=== PATIENT | female | born 1995 | race Two or more races ===

== ENCOUNTER 2022-08-08 12:19 | Emergency (ER) | payer OTHER, SELFPAY ==
--- NOTE | ~2022-08-08 | US_ITS ---
EARLY OBSTETRICAL ULTRASOUND CLINICAL INDICATION: Pain TECHNIQUE: Transabdominal and endovaginal ultrasound were performed. Multiple sagittal and transverse grayscale, color and pulse wave doppler images obtained. COMPARISONS: None. FINDINGS: LMP unknown. Single intrauterine is identified within the uterus. A pole is identified with crown rump length measuring 2.35 cm, corresponding with 9 weeks, 1 days by sonography. heart rate measures 176 beats per minute. Yolk sac is normal. No perigestational hemorrhage. The right ovary measures 2.3 x 1.4 x 2.0 cm. The left ovary measures 3.2 x 2.2 x 3.0 cm. Left ovarian corpus luteal cyst noted measuring 2.2 x 2.0 x 1.9 cm. No free fluid in the pelvis. US/US OB <= 14 weeks fetus IMPRESSION: Single intrauterine gestation corresponding with 9 weeks, 1 days by sonography. heart rate of 176 beats per minute.
--- NOTE | 2022-08-08 12:32 | ED_ITS ---
HPI - General Adult General Chief complaint: Vaginal Bleeding Stated complaint: Cramping 9 -10 Wks Preg Time Seen by Provider: 08/08/22 14:59 Source: patient Mode of arrival: ambulatory Limitations: no limitations History of Present Illness HPI narrative: 27-year-old female presents to the emergency department for concerns of abdominal pain and cramping. She thinks she is approximately 9 weeks . She states she has also has some brownish vaginal discharge. She denies fevers chills cough nausea vomiting or diarrhea. Related Data Allergies Allergy/AdvReac Type Severity Reaction Status Date / Time No Known Allergies Allergy Verified 08/08/22 12:31 Review of Systems Review of Systems: Review of systems: General: Patient denies any fever chills recent illness or falls Musculoskeletal: Denies back pain or body aches or other injuries HEENT: denies headache, runny nose, ear pain Respiratory: denies shortness of breath, cough Cardiovascular: no chest pain or palpitations : Vaginal discharge denies dysuria, frequency Abdomen: no nausea vomiting denies abdominal pain Extremities: no swelling, no pain Skin: no diaphoresis Yes all other systems are reviewed and are negative PMFSH Social History Social History Advance Directives: No Advance Directives Information Provided: No Physical Exam ED Vital Signs: Vital Signs - 24 hr 08/08/22 12:33 Temperature 98.0 F Pulse Rate 89 Respiratory Rate 16 Blood Pressure 106/71 Pulse Oximetry 97 Oxygen Delivery Method Room Air BMI result Body Mass Index 41.4 General: Well-appearing well-nourished in no signs of distress HEENT: Normocephalic atraumatic Neck: No signs of JVD, no masses no tenderness or lymphadenopathy Cardiovascular: Regular rate and rhythm Respiratory: Clear to auscultation bilaterally Abdomen: Soft nontender no masses Extremities: Normal pedal pulses no signs of edema Skin: Dry warm no rashes Back: No tenderness full ROM Course Course Course Narrative: RME- 27-year-old female with past medical history significant for migraine headaches presents for evaluation of lower abdominal cramping and vaginal spotting. Reports that she recently found out she is and believes she is about 3 months. Does not remember her last menstrual cycle. She is . Plan for labs, ultrasound Medical Decision Making Medical Decision Making MDM Narrative: Patient is approximately 11 weeks I did explain to the patient by ultrasound patient states she has been 4 times she denies fevers chills cough or abdominal pain at this time. I explained to her that we need to do pelvic exam as she states she has brownish discharge she requested a female provider and then absconded from the ER. I was able to arrange fever Friday when he went to the room she was no longer there. Differential Diagnosis Differential Diagnoses: The differential diagnosis associated with the presentation includes He has Trichomonas GC chlamydia normal vaginal ludin Admission/Observation Consideration of admission/observation: Escalation of care including admission/observation considered Lab Data MDM Lab Attestation statement: I reviewed the patient's lab results. 08/08/22 12:52 08/08/22 12:52 Labs: Lab Results 08/08/22 08/08/22 Range/Units 12:52 12:52 WBC 8.2 (4.8-10.8) X10*3/uL RBC 3.86 L (4.20-5.50) X10*6/uL Hgb 11.1 L (12.0-16.0) g/dl Hct 33.0 L (37.0-47.0) % MCV 85.5 (80.0-98.0) fL MCH 28.8 (27.0-33.0) pg MCHC 33.6 (31.0-35.0) g/dl RDW 11.8 (11.0-16.0) % Plt Count 232 (160-400) X10*3/uL MPV 10.1 (9.4-12.3) fL Immature Gran % (Auto) 0.4 (0.0-0.4) % Neut % (Auto) 72.5 (45-73) % Lymph % (Auto) 19.1 L (20-40) % Teller % (Auto) 5.1 (2-11) % Eos % (Auto) 2.7 (0-4) % Baso % (Auto) 0.2 (0-2) % Lymph # (Auto) 1.6 (1.2-4.9) X10*3/uL Teller # (Auto) 0.4 (0.1-1.2) X10*3/uL Eos # (Auto) 0.2 (0.0-0.4) X10*3/uL Baso # (Auto) 0.0 (0.0-0.2) X10*3/uL Abs Immat Gran (auto) 0.03 (0.00-0.03) X10*3/uL Absolute Neuts (auto) 5.9 (2.0-8.3) x10*3/uL Absolute Nucleated RBC 0.000 (0.0-0.012) X10*3/uL Nucleated RBC % (auto) 0.0 (0.0-0.2) /100WBC Sodium 138 (135-145) mmol/L Potassium 4.0 (3.3-5.1) mmol/L Chloride 110 H (96-108) mmol/L Carbon Dioxide 22 (22-29) mmol/L Anion Gap 10 L (12-20) BUN 9 (9-16) mg/dL Creatinine 0.61 (0.5-1.4) mg/dL Estim Creat Clear Calc 84.0 Estimated GFR > 60 Random Glucose 87 (60-115) mg/dL Calcium 9.0 (8.4-10.2) mg/dL Total Bilirubin 0.3 (0.0-1.0) mg/dL AST 11 (5-31) U/L ALT 9 (0-31) U/L Alkaline Phosphatase 57 (39-117) U/L Total Protein 6.4 L (6.5-8.0) g/dL Albumin 3.8 (3.5-5.0) g/dL Lipase 18 (8-78) U/L Beta HCG, Quant 51245 mIU/mL Independent Historian Clinical information obtained from an independent historian. History obtained from or confirmed by: Friend External Record Review External record reviewed: Inpatient record Discharge Plan Discharge Clinical Impression: Threatened , Vaginal discharge, Vaginal discharge during in first trimester Patient Disposition: Elopement Instructions: Vaginal Discharge (ED), First Trimester (ED), Abdominal Pain in (ED), Threatened Miscarriage (ED) Additional Instructions: You left before we could come up with any gave plan. please return.
[2022-08-08 12:33] VITALS: BP 106/71; PULSE 89; RESP 16; TEMP 36.7; O2SAT 97; BMI 41.4
[2022-08-08 12:58] LABS: MANUAL DIFF FLAG NO
[2022-08-08 13:01] LABS: Basophils Percent Auto 0.2 % (0-2); Eosinophils Absolute Auto 0.2 X10*3/uL (0.0-0.4); Eosinophils Percent Auto 2.7 % (0-4); Hemoglobin 11.1 g/dl (12.0-16.0); Imm Gran Abs Auto 0.03 X10*3/uL (0.00-0.03); Imm Gran Pct Auto 0.4 % (0.0-0.4); Lymphocytes Absolute Auto 1.6 X10*3/uL (1.2-4.9); Lymphocytes Percent Auto 19.1 % (20-40); Mean Corpuscular HGB Conc 33.6 g/dl (31.0-35.0); Mean Corpuscular Hemoglobin 28.8 pg (27.0-33.0); Mean Corpuscular Volume 85.5 fL (80.0-98.0); Mean Platelet Volume 10.1 fL (9.4-12.3); Monocytes Absolute Auto 0.4 X10*3/uL (0.1-1.2); Monocytes Percent Auto 5.1 % (2-11); Neutrophils Absolute Auto 5.9 x10*3/uL (2.0-8.3); Neutrophils Percent Auto 72.5 % (45-73); Platelet Count 232 X10*3/uL (160-400); Red Blood Count 3.86 X10*6/uL (4.20-5.50); Red Cell Distribution Width 11.8 % (11.0-16.0); White Blood Count 8.2 X10*3/uL (4.8-10.8)
[2022-08-08 13:25] LABS: Alanine Aminotransferase 9 U/L (0-31); Albumin Level 3.8 g/dL (3.5-5.0); Alkaline Phosphatase 57 U/L (39-117); Anion Gap 10 (12-20); Aspartate Amino Transferase 11 U/L (5-31); Bilirubin Total 0.3 mg/dL (0.0-1.0); Blood Urea Nitrogen 9 mg/dL (9-16); Carbon Dioxide 22 mmol/L (22-29); Chloride 110 mmol/L (96-108); Estimated Glomerular Filt Rate > 60; Glucose Random 87 mg/dL (60-115); Lipase 18 U/L (8-78); Sodium 138 mmol/L (135-145); Total Protein 6.4 g/dL (6.5-8.0)
== END 2022-08-08 15:40 | disposition left against medical advice (07) ==
PROVIDERS: Physician Assistant; Emergency Provider Student in an Organized Health Care Education/Training Program
DX: O20.0 Threatened abortion (principal); O26.891 Other specified pregnancy related conditions, first trimester; N89.8 Other specified noninflammatory disorders of vagina; Z3A.09 9 weeks gestation of pregnancy
CPT/HCPCS: 36415; 76801; 80053; 83690; 84702; 85025; 99281; 99284

== ENCOUNTER 2024-10-15 12:24 | Emergency (ER) | payer MEDICAID, SELFPAY ==
--- NOTE | 2024-10-15 12:29 | ECG_ITS ---
Test Reason : cp Blood Pressure : */* mmHG Vent. Rate : 68 BPM Atrial Rate : 68 BPM P-R Int : 142 ms QRS Dur : 88 ms QT Int : 392 ms P-R-T Axes : 29 12 23 degrees QTcB Int : 416 ms Normal sinus rhythm Normal ECG No previous ECGs available Referred By: Candy Teran Electronically Signed By: Roderick Duran
[2024-10-15 12:44] VITALS: BP 127/89; PULSE 67; RESP 18; TEMP 36.6; O2SAT 98
--- NOTE | 2024-10-15 12:53 | ED.GENADULT ---
HPI - General Adult General Chief complaint: General Medical Stated complaint: CP, possible fractured toe, possible uti Time Seen by Provider: 10/15/24 13:55 Source: patient Mode of arrival: ambulatory Limitations: no limitations History of Present Illness ED Provider: HPI narrative: 29-year-old woman, no active SI or HI, patient was already cleared by crisis team at the time of my evaluation, sounds like during triage she mentioned that she does have thoughts of harming herself and have had thoughts of jumping of the bridge and when she was told that she needs to be evaluated by psychiatric team and she is placed on section 12 there was some verbal altercation with the staff this patient did not feel that this is necessary and she is here for medical issues and just mentioned this as part of mental health intake and she is not actively SI. She states that she is to be taking antibiotics for 5th toe infection on her left foot, considers that it may be dislocated, she also states that she is taking the same antibiotics for UTI but still has vaginal itching and wonders whether she has Trichomonas as, and she also has a history of herpes zoster but currently does not have and I break. She was sexually active with a partner on and off without protection. Patient told me that this is the 3rd hospital she is presenting to 1st they went to [facility] then she states that in provide good care of her and she was wheeled out , then she took ambulance to [facility] and something was sent to her by a staff which triggered her and she ended up at [facility] with her friend. She was also complaining of chest pain and then also wanted to be tested for flu and COVID. Related Data Previous Rx's ?Medication ?Instructions ?Recorded metronidazole 0.75 % (37.5 mg/5 1 appful vaginal DAILY 5 days #70 10/15/24 gram) vaginal gel (Vandazole) grams Allergies Allergy/AdvReac Type Severity Reaction Status Date / Time No Known Allergies Allergy Verified 10/15/24 12:49 Review of Systems Constitutional: Constitutional: Reports as per HPI Physical Exam ED Vital Signs: Vital Signs - 24 hr 10/15/24 12:44 Temperature 98 F Pulse Rate 67 Respiratory Rate 18 Blood Pressure 127/89 Pulse Oximetry 98 Oxygen Delivery Method Room Air BMI result Body Mass Index 30.0 Const Other: Gen: ?Overall well-appearing patient MSK: FROM, strength 5/5 all extremities Skin: Patient has a callus on the lateral side of the 5th digit without any erythema without drainage distal pulses intact, Neuro: ?Alert and oriented x3, moving upper and lower extremities symmetrically, no obvious facial asymmetry noted Psych: No SI or HI, see my HPI Course Course Course Narrative: Candy Teran [employer]ER 10/15 8731 This is a rapid medical exam. Deferred additional HPI, ROS, PE to primary provider. 29yo female with history of bipolar disorder here with multiple complaints including SI with plan, CP, concern for UTI and toe infection. Direct to pod. VSS After triage patient decided she wanted to leave. Unable to re-direct her. Section 12 completed . Medical Decision Making Medical Decision Making [facility] Narrative: I explained to the patient that unless I have suspicion for viral infection she is febrile not going to be testing for flu or COVID this can be done on outpatient basis, her toe examination is consistent with callus see my discharge instructions regarding management for that, we will send off urine for GC and chlamydia, we will treat for yeast infection we will send of BV test as well, exam deferred, as far as such I gave evaluation, patient has no active SI or HI, she was evaluated by crisis team and cleared from a section 12 prior to my evaluation, psychiatric issue was not part of her visit this was noted in triage. Differential Diagnosis Differential Diagnoses: The differential diagnosis associated with the presentation includes Lab Data [facility] Lab Attestation statement: I reviewed the patient's lab results. 10/15/24 13:44 10/15/24 13:44 Labs: Lab Results 10/15/24 Range/Units 13:44 WBC 6.0 (4.8-10.8) X10*3/uL RBC 4.49 (4.20-5.50) X10*6/uL Hgb 12.5 (12.0-16.0) g/dl Hct 37.6 (37.0-47.0) % MCV 83.7 (80.0-98.0) fL MCH 27.8 (27.0-33.0) pg MCHC 33.2 (31.0-35.0) g/dl RDW 12.2 (11.0-16.0) % Plt Count 243 (160-400) X10*3/uL MPV 11.3 (9.4-12.3) fL Immature Gran % (Auto) 0.2 (0.0-0.4) % Neut % (Auto) 52.6 (45-73) % Lymph % (Auto) 37.6 (20-40) % Sawyer % (Auto) 6.9 (2-11) % Eos % (Auto) 2.2 (0-4) % Baso % (Auto) 0.5 (0-2) % Lymph # (Auto) 2.2 (1.2-4.9) X10*3/uL Sawyer # (Auto) 0.4 (0.1-1.2) X10*3/uL Eos # (Auto) 0.1 (0.0-0.4) X10*3/uL Baso # (Auto) 0.0 (0.0-0.2) X10*3/uL Abs Immat Gran (auto) 0.01 (0.00-0.03) X10*3/uL Absolute Neuts (auto) 3.1 (2.0-8.3) x10*3/uL Absolute Nucleated RBC 0.000 (0.0-0.012) X10*3/uL Nucleated RBC % (auto) 0.0 (0.0-0.2) /100WBC Ethyl Alcohol < 10 mg/dL Independent Interpretation I performed an independent interpretation of an: EKG (68 beats per minute otherwise normal ECG without dysrhythmia, AV vish blocks or ST-T changes to suspect underlying ACS, my independent interpretation) Prescription Management I considered prescription management with: Pain Medication and Antibiotic Discharge Plan Discharge Clinical Impression: Callus of toe, Vagina itching Chest pain Qualifiers: Chest pain type: unspecified Qualified Code(s): R07.9 - Chest pain, unspecified Patient Disposition: Home, Self-Care Additional Instructions: You have had fairly involved workup for chest pain specifically, your EKG and workup did not reveal any abnormalities/in the chest pain is likely due to musculoskeletal issues typically in the young healthy woman it is due to ribcage inflammation and you can take ibuprofen 400 mg every 6 hours needed for pain for that., your blood work does not reveal any suspicious for ongoing infection, we discussed soaking your toe and cutting off the callus and adjusting your shoe wear, your toes not dislocated, gonorrhea and chlamydia test has been ordered and if you provide a sample it is going to be sent and we will result in the next 48 hours, if it is positive you will get a phone call, in the meantime I will treat for presumptive vaginal yeast infection and it is likely due to the fact that you were on antibiotics, vaginal cream sent to your pharmacy, as far as mental health issues, if you do feel any thoughts of hurting herself or harming others and you need help never hesitate to come back to emergency department for re-evaluation we have resources for that. Prescriptions: New metronidazole [Vandazole] 0.75 % (37.5mg/5 gram) gel 1 appful vaginal DAILY 5 Days Qty: 70 0RF Print Language: [place]
--- NOTE | 2024-10-15 12:58 | PC.NURSE ---
Received report from Moreno Urrutia RN. Per report, patient was triaged, initial complaints of chest pain, toe pain/infection, ?UTI, and then reported feeling suicidal. Patient to come to ED Pod with staff escort. Changeover in progress with staff & security at this time. This RN to assume care of this patient upon arrival to Pod.
[2024-10-15 13:48] LABS: MANUAL DIFF FLAG NO
--- NOTE | 2024-10-15 13:54 | PC.NURSE ---
Per Provider, pt denies SI/HI pt cleared by Care team. PT to provide urine.
[2024-10-15 13:56] LABS: Hematocrit 37.6 % (37.0-47.0); Hemoglobin 12.5 g/dl (12.0-16.0); Imm Gran Abs Auto 0.01 X10*3/uL (0.00-0.03); Imm Gran Pct Auto 0.2 % (0.0-0.4); Lymphocytes Absolute Auto 2.2 X10*3/uL (1.2-4.9); Mean Corpuscular HGB Conc 33.2 g/dl (31.0-35.0); Mean Corpuscular Hemoglobin 27.8 pg (27.0-33.0); Mean Corpuscular Volume 83.7 fL (80.0-98.0); NRBC Abs Auto 0.000 X10*3/uL (0.0-0.012); NRBC Pct Auto 0.0 /100WBC (0.0-0.2); Platelet Count 243 X10*3/uL (160-400); Red Blood Count 4.49 X10*6/uL (4.20-5.50); White Blood Count 6.0 X10*3/uL (4.8-10.8)
[2024-10-15 14:06] LABS: Alanine Aminotransferase 24 U/L (0-31); Albumin Level 4.5 g/dL (3.5-5.0); Alkaline Phosphatase 83 U/L (39-117); Anion Gap 10 (12-20); Aspartate Amino Transferase 28 U/L (5-31); Blood Urea Nitrogen 7 mg/dL (9-16); Calcium 8.9 mg/dL (8.4-10.2); Carbon Dioxide 22 mmol/L (22-29); Chloride 113 mmol/L (96-108); Creatinine Clr Calc Pharmacy 114.4; Estimated Glomerular Filt Rate > 60; Potassium 3.8 mmol/L (3.3-5.1); Sodium 141 mmol/L (135-145); Total Protein 6.9 g/dL (6.5-8.0)
[2024-10-15 14:12] LABS: Acetaminophen LAB 5 mcg/mL (<30); Salicylate < 5.0 mg/dL (15-30)
--- OUTSIDE RECORDS SUMMARY | 2024-10-15 14:14 | XMS_ITS | Clinical Summary ---
Author Organization [facility] Address [address] [place] [address] Care Team Providers Care Service Representative Name Role Phone Unavailable Primary Care Provider Unavailabl e Source Comments PLEASE NOTE, if this patient is a minor, it may be UNLAWFUL to discuss sensitive information that is contained in these records (such as FAMILY PLANNING, MENTAL HEALTH or SUBSTANCE ABUSE) with the minor patient's parent or other person without the patient's specific authorization.[facility] Allergies No known active allergies Medications ibuprofen 600 mg tabletIndications: Chronic apical periodontitis Take 1 Tablet by mouth 4 (four) times daily as needed for mild pain 20 Tablet 3 Active acetaminophen (TYLENOL) 500 mg tabletIndications: Caries of pulp Take 1 Tablet by mouth every 6 (six) hours as needed for pain 20 Tablet 3 Active Active Problems No known active problems Social History Tobacco Use Types Packs/Day Years Used Date Smoking Tobacco: Never Smokeless Tobacco: Never Tobacco Cessation:Counseling Given: Not Answered Comments:Vape TSD Oil Social Connections Answer Date Recorded Connectedness 0 11/19/2023 Financial Resource Strain Answer Date R ecorded Financial Resource Strain 0 2021 Stress Answer Date Recorded Stress 0 06/22/2021 Physical Activity Answer Date Recorded Physical Activity 0 06/22/2021 Food Insecurity Answer Date Recorded Food 0 11/27/2023 Transportation Needs Answer Date Record ed Transportation 0 06/22/2021 Housing Stability Answer Date Recorded Housing 0 06/22/2021 Safety and Environment Answer Date Gustavo rded Safety 0 06/22/2021 Utilities Answer Date Recorded Utilities 0 06/22/2021 Employment Answer Date Recorded Stress 0 11/19/2023 Comments Unknown Sex and Gender Information Value Date Recorded Sex Assigned at Not on file Legal Sex Female 7:56 AM PDT Gender Identity Not on file Sexual Orientation Not on file Last Filed Vital Signs Vital Sign Reading Time Taken Comments Blood Pressure 111/75 05/31/2024 1:22 PM EDT Pulse 72 05/31/2024 1:22 PM EDT Temperature - - Respiratory Rate - - Oxygen Saturation - - Inhaled Oxygen Concentration - - Weight - - Height - - Body Mass Index - - Plan of Treatment Health Maintenance Due Date Last Done Comments Anxiety Screening 1997 Dental Prophy 1997 HPV Screening 1997 Hepatitis C Screening 1997 Pap + HPV 1997 HIV Screening 2012 Relationship Safety Screening/Counseling 2012 Imm-Hepatitis B (1 of 3 - 19 + 3-dose series) 2016 Cervical Cancer Screening 2018 Pap Smear 2018 Dental Examination 01/04/2023 01/02/2022 Dental Perio Charting 01/04/2023 01/02/2022 [id number] ( season) 2023 022, 02/26/2021 Dental BW 02/15/2024 02/12/2023, 01/02/2022 Alcohol and Drug Screen 03/03/2024 Depression Annual Screen 03/03/2024 Imm-Influenza (#1) 2024 12/26/2022, 0 05/15/2018, 01/31/2017, Additional history exists Tobacco Screening 05/31/2025 05/31/2024 Hypertension Screening (#1) 05/31/2027 Dental FMX/Pano 07/06/2027 07/03/2022, 01/02/2022 Imm-DTaP/Tdap/Td (9 - Td or Tdap) 12/26/2032 12/26/2022, 09/18/2018, 02/28/2017, Additional history exists Cervical Ablation/Cold-Knife Conization Discontinued Cervical Cryotherapy Discontinued Colposcopy Discontinued Endometrial Biopsy Discontinued Excision/Leep Discontinued HPV Genotyping Discontinued Vaginal Pap Discontinued Vulvoscopy Discontinued Procedures Procedure Name Priority Date/Time Associated Diagnosis Comments BITEWINGS - FOUR RADIOGRAPHIC IMAGES Routine 02/12/2023 11:00 AM EST Caries of enamel (incipient) PANORAMIC RADIOGRAPHIC IMAGE Routine 07/03/2022 10:40 AM EDT Chronic apical periodontitis COMP PERIODONTAL EVALUATION - NEW/EST PATIENT Routine 01/02/2022 11:00 AM EDT Gingivitis, chronic, plaque induced PERIODIC ORAL EVALUATION ESTABLISHED PATIENT Routine 01/02/2022 11:00 AM EDT Gingivitis, chronic, plaque induced from Last 3 Months or Most Recently Relevant to Health Maintenance Insurance [place] MEDICAID DENTAL
[2024-10-15 14:22] LABS: Troponin-I High Sensitivity < 2.7 ng/L (<3.5-17.0)
[2024-10-15 14:25] LABS: UPreg QC Valid YES
[2024-10-15 14:26] LABS: Appearance Urine Clear; Glucose Urine UA Negative (Negative); PH 6.5 (5.0-9.0); Specific Gravity - Urine 1.025 (1.005-1.025); UMIC TRIGGER UACC YES
[2024-10-15 14:33] LABS: UACC Culture Trigger YES
[2024-10-15 14:36] LABS: Cannabinoid Screen Urine POSITIVE (Not Detect)
[2024-10-15 15:58] LABS: Bacterial Vaginosis PCR POSITIVE (Negative); Candida Group PCR DETECTED (Not Detect); Candida glab krusei PCR NOT DETECTED (Not Detect); Trichomonas vaginalis PCR NOT DETECTED (Not Detect)
[2024-10-15 18:01] LABS: CT PCR Urine NOT DETECTED (Not Detect.); NG PCR Urine NOT DETECTED (Not Detect.)
[2024-10-15 19:37] VITALS: BP 127/89; PULSE 67; RESP 18; TEMP 36.6; O2SAT 98
== END 2024-10-15 14:30 | disposition home or self-care (01) ==
PROVIDERS: Nurse Practitioner Family; Emergency Provider Emergency Medicine
DX: L84 Corns and callosities (principal); L29.2 Pruritus vulvae; R07.89 Other chest pain; R45.851 Suicidal ideations; Z20.2 Contact with and (suspected) exposure to infections with a predominantly sexual mode of transmission; Z51.81 Encounter for therapeutic drug level monitoring
CPT/HCPCS: 36415; 80048; 80076; 80143; 80179; 80307; 81001; 81025; 81515; 84484; 85025; 87086; 87491; 87591; 93005; 99283; S9485

== ENCOUNTER → 2024-10-15 12:29 | Outpatient (BNV) | payer OTHER, SELFPAY | PROVIDERS: Emergency Provider Emergency Medicine; Visit Provider Internal Medicine Cardiovascular Disease | DX: R07.9 Chest pain, unspecified (principal) | CPT/HCPCS: 93010 ==

== ENCOUNTER 2024-12-03 16:09 | Emergency (ER) | payer MEDICAID, SELFPAY ==
--- NOTE | 2024-12-03 16:23 | ECG_ITS ---
Test Reason : WEAKNESS Blood Pressure : */* mmHG Vent. Rate : 67 BPM Atrial Rate : 67 BPM P-R Int : 148 ms QRS Dur : 88 ms QT Int : 380 ms P-R-T Axes : 36 11 22 degrees QTcB Int : 401 ms Normal sinus rhythm with sinus arrhythmia Low voltage QRS Borderline ECG When compared with ECG of 15-Oct-2024 12:31, No significant change was found Referred By: Generic ED Physician Electronically Signed By: MONTEZ PIKE
[2024-12-03 16:28] VITALS: BP 128/90; PULSE 78; O2SAT 98
[2024-12-03 16:35] VITALS: BP 110/61; PULSE 76; RESP 16; TEMP 36.1; O2SAT 98; BMI 25.7
--- NOTE | 2024-12-03 16:56 | ED.GENADULT ---
HPI - General Adult General Chief complaint: General Medical Stated complaint: L arm numbness Time Seen by Provider: 12/03/24 16:34 Source: patient Mode of arrival: ambulatory Limitations: no limitations History of Present Illness ED Provider: MARLEN TORO PA-C HPI narrative: 29 year old female with pmhx significant for bipolar disorder presents to the ED today for evaluation of left arm numbness which began prior to arrival in ED today. Patient endorse history of stroking out since she was a child. She describes these episodes as heart palpitations and numbness down her left arm. Reports she has been seen at various hospitals for this, last being [facility] approximately 1 monh ago. She was reportedly told she had stroke. She was not discharged on aspirin or any antioagulation medications. Today, patient states that she was getting on the bus in [place] when she ran into her brother. Reports complicated history with her family. States she was triggered by seeing her brother which prompted another stroking episode . Reports calling EMS and was then transported to our ED. She states she self discontinued her prozac and risperidal a few months ago as these were poisoning me . States she has three children, all of which were removed from her custody. Reports continued drug use - does not wish to disclose what she is using. Denies IVDU. Reports history of etoh abuse - denies any etoh consumption recently. Denies SI/HI. Admits she was previously receiving treatment at [facility] - states she was kicked out a few months ago for unknown reasons. Related Data Previous Rx's ?Medication ?Instructions ?Recorded metronidazole 0.75 % (37.5 mg/5 1 appful vaginal DAILY 5 days #70 10/15/24 gram) vaginal gel (Vandazole) grams Allergies Allergy/AdvReac Type Severity Reaction Status Date / Time No Known Allergies Allergy Verified 12/03/24 16:36 Review of Systems Review of Systems: Yes all other systems are reviewed and are negative PMFSH Past Medical History Attestation statement: The following information was validated with the patient. Source: old records reviewed and nursing notes reviewed Social History Social History Unable to assess alcohol history related to: Unknown Use of substances other than those prescribed or required for medical reasons: Unknown Advance Directives: No Advance Directives Information Provided: Yes Do you have a plan to hurt others: No Plan Patient : No Physical Exam ED Vital Signs: Vital Signs - 24 hr 12/03/24 16:35 Temperature 97.0 F Pulse Rate 76 Respiratory Rate 16 Blood Pressure 110/61 Pulse Oximetry 98 Oxygen Delivery Method Room Air BMI result Body Mass Index 25.7 vital signs stable General: Well appearing, in no acute distress. Skin: Warm, dry, intact. No rashes or lesions. Head: Normocephalic, atraumatic. EENT: Hearing is intact b/l. Conjunctiva clear. Sclera is anicteric. PERRLA. EOM intact. Moist mucous membranes.? Neck: Supple without LAD Cardiac: Chest wall symmetric. RRR Lungs: Normal respiratory effort without accessory muscle use. CTA bilaterally Abdomen: Soft, non-tender, non-distended. No rebound tenderness or guarding Back: No midline spinous or paraspinal tenderness. No step off deformity. Ext: Upper and lower extremities atraumatic, without tenderness, deformity, swelling or erythema Neuro: AOx3. Normal speech. NIH 0. normal finger to nose heel to anthony. Strength 5/5 intact throughout. Sensation intact to light touch. NV intact distally. Ambulating with steady gait. Course Course Course Narrative: CBC without leukocytosis or left shift. No anemia. H&H stable. Chemistry without acute electrolyte abnormality requiring intervention. No SVETLANA. Liver function WNL. Beta quant undetectable. Troponin undetectable. Urine without infection. Urine toxicology positive for fentanyl, otherwise undetectable. EKG showing normal sinus rhythm without acute ischemic changes or ST elevations. > patient's presentation is not consistent with an acute stroke. She describes many strokes throughout her life, since she was a small child however appears to be describing a panic/ anxiety attack. her exam is benign and NIH score is 0. it appears her symptoms were caused by a stressful event today (seeing her brother at the bus stop) and symptoms have resolved. she is feels well and is anxious for discharge home. she has been off her psych meds for a few months now. discussed talking with care team however patient is declining at this time. Patient has remained stable throughout ED visit today. Discussed worrisome signs and symptoms and when to return to the ED. All questions answered at this time. Patient is agreeable with disposition and stable for discharge. Medical Decision Making Medical Decision Making MDM Narrative: 29 year old female with pmhx significant for bipolar disorder presents to the ED today for evaluation of left arm numbness which began prior to arrival in ED today. Vital signs stable. She is well-appearing and in no acute distress. Exam is nonfocal and NIH score 0. Differential diagnosis includes anemia, electrolyte abnormality, anxiety, panic attack. Lower suspicion for ACS/arrhythmia. Presentation not consistent with acute CVA or TIA, cerebellar stroke. Plan for screening labs, trop, EKG and re-evaluation. Differential Diagnosis Differential Diagnoses: The differential diagnosis associated with the presentation includes as above. Admission/Observation not indicated. Lab Data [facility] Lab Attestation statement: I reviewed the patient's lab results. as above. 12/03/24 17:06 12/03/24 17:06 Labs: Lab Results 12/03/24 12/03/24 Range/Units 17:06 18:32 WBC 7.7 (4.8-10.8) X10*3/uL RBC 4.70 (4.20-5.50) X10*6/uL Hgb 13.4 (12.0-16.0) g/dl Hct 39.7 (37.0-47.0) % MCV 84.5 (80.0-98.0) fL MCH 28.5 (27.0-33.0) pg MCHC 33.8 (31.0-35.0) g/dl RDW 12.0 (11.0-16.0) % Plt Count 321 D (160-400) X10*3/uL MPV 9.7 (9.4-12.3) fL Immature Gran % (Auto) 0.3 (0.0-0.4) % Neut % (Auto) 59.6 (45-73) % Lymph % (Auto) 31.1 (20-40) % Jack % (Auto) 4.8 (2-11) % Eos % (Auto) 3.8 (0-4) % Baso % (Auto) 0.4 (0-2) % Lymph # (Auto) 2.4 (1.2-4.9) X10*3/uL Jack # (Auto) 0.4 (0.1-1.2) X10*3/uL Eos # (Auto) 0.3 (0.0-0.4) X10*3/uL Baso # (Auto) 0.0 (0.0-0.2) X10*3/uL Abs Immat Gran (auto) 0.02 (0.00-0.03) X10*3/uL Absolute Neuts (auto) 4.6 (2.0-8.3) x10*3/uL Absolute Nucleated RBC 0.000 (0.0-0.012) X10*3/uL Nucleated RBC % (auto) 0.0 (0.0-0.2) /100WBC Sodium 139 (135-145) mmol/L Potassium 3.8 (3.3-5.1) mmol/L Chloride 108 (96-108) mmol/L Carbon Dioxide 25 (22-29) mmol/L Anion Gap 10 L (12-20) BUN 10 (9-16) mg/dL Creatinine 0.80 (0.5-1.4) mg/dL Estim Creat Clear Calc 96.2 Estimated GFR > 60 Random Glucose 84 (60-115) mg/dL Calcium 9.1 (8.4-10.2) mg/dL Total Bilirubin 0.2 (0.0-1.0) mg/dL AST 21 (5-31) U/L ALT 23 (0-31) U/L Alkaline Phosphatase 75 (39-117) U/L Troponin I High Sens < 2.7 (<3.5-17.0) ng/L Total Protein 7.0 (6.5-8.0) g/dL Albumin 4.5 (3.5-5.0) g/dL Beta HCG, Quant < 2 mIU/mL Urine Color Yellow Urine Appearance Clear Urine pH 5.5 (5.0-9.0) Ur Specific [place] 1.010 (1.005-1.025) Urine Protein Negative (Neg-Trace) mg/dL Urine Glucose (UA) Negative (Negative) mg/dL Urine Ketones Negative (Negative) mg/dL Urine Blood Negative (Negative) Urine Nitrite Negative (Negative) Ur Leukocyte Esterase Negative (Negative) Urine Opiates Screen Not Detected (Not Detect) Ur Buprenorphine Scrn Not Detected (Not Detect) ng/mL Ur Oxycodone Screen Not Detected (Not Detect) ng/mL Urine Methadone Screen Not Detected (Not Detect) ng/mL Urine Fentanyl Screen POSITIVE H (Not Detect) Ur Barbiturates Screen Not Detected (Not Detect) Ur Phencyclidine Scrn Not Detected (Not Detect) Ur Amphetamines Screen Not Detected (Not Detect) U Benzodiazepines Scrn Not Detected (Not Detect) Urine Cocaine Screen Not Detected (Not Detect) U Marijuana (THC) Screen Not Detected (Not Detect) Independent Interpretation I performed an independent interpretation of an: EKG Interpretation: EKG showing normal sinus rhythm with sinus arrhythmia, rate 67 beats per minute, QT 380, QTC 401, no acute ischemic changes or ST elevations. Radiology Impression Discussion of test interpretation with radiology: I have reviewed the radiologist's reading. Radiologist Impression: Procedure(s): ECG 12 lead EKG Accession Number(s): [id number] cc: Adithya Mahmood MD~ Reason for Exam: weakness Test Reason : WEAKNESS Blood Pressure : */* mmHG Vent. Rate : 67 BPM Atrial Rate : 67 BPM P-R Int : 148 ms QRS Dur : 88 ms QT Int : 380 ms P-R-T Axes : 36 11 22 degrees QTcB Int : 401 ms Normal sinus rhythm with sinus arrhythmia Low voltage QRS Borderline ECG When compared with ECG of 15-Oct-2024 12:31, No significant change was found Independent Historian Clinical information obtained from an independent historian. History obtained from or confirmed by: EMS Social Determinants Patient?s care significantly limited by Social Determinants of Health including: Other Social Determinant of Health Critical Care Time Critical Care Time Critical Care Time: No Discharge Plan Discharge Clinical Impression: Arm paresthesia, left Patient Disposition: Home, Self-Care Instructions: Paresthesia (ED) Additional Instructions: Your blood work and EKG are reassuring. Your cardiac enzyme is normal. Your physical exam is reassuring. Your urine does not demonstrate infection. Please follow up with your outpatient providers. Return with any new or worsening symptoms. In the case of an emergency call 911. Prescriptions: No Action metronidazole [Vandazole] 0.75 % (37.5mg/5 gram) gel 1 appful vaginal DAILY 5 Days Qty: 70 0RF Referrals: [facility] [Provider Group] Physician,Unknown J [Primary Care Provider, Medical] Interventions: ED Discharge Assessment Last Done: 12/03/24 19:13 Discharge Date/Time: 12/03/24 19:13 Print Language: Cambodian
--- OUTSIDE RECORDS SUMMARY | 2024-12-03 16:56 | XMS_ITS | Clinical Summary ---
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 clean catch procedure / Unknown Non-blood Collection / Unknown 10/26/2024 3:32 AM EDT 10/26/2024 3:55 AM EDT Rufina Barron MD LAB URINE ORDERABLES Final Res ult [facility] [address] [place] [address], [place] [phone] * Culture urine (10/24/2024 5:29 PM EDT) Culture, Urine No growth 10/25/2024 1:54 PM EDT [facility] Urine Urine specimen obtained by clean catch procedure / Unknown Non-blood Collection / Unknown 10/24/2024 5:29 PM EDT 10/24/2024 6:36 PM EDT us Valerie Harris MD LAB MICROBIOLOGY - GENERAL O RDERABLES Final Result [facility] [address] [place] [address], [place] [phone] * Trichomonas vaginalis antigen (10/24/2024 2:58 PM EDT) Pathologist [facility] Trichomonas vaginalis Negative Negative 10/24/2024 3:50 PM EDT [facility] Swab Cervix uteri structure / Unknown Non-blood Collection / Unknown 10/24/2024 2:58 PM EDT 10/24/2024 3:09 PM EDT us Valerie Harris MD LAB MICROBIOLOGY - GENERAL O RDERABLES Final Result Performing Organization Address City/[facility]/ZIP Co de Phone Number [facility] [address] [place] [address], [place] [phone] * Chlamydia trachomatis and Neisseria gonorrhoeae molecular study (10/24/2024 2:58 PM EDT) [facility] Neisseria gonorrhoeae PCR Negative Negative LAB MOLECULAR DIAGNOSTICS METHOD 10/25/2024 9:50 AM EDT [facility] Chlamydia trachomatis PCR Negative Negative LAB MOLECULAR DIAGNOSTICS METHOD 10/25/2024 9:50 AM EDT [facility] Swab Vaginal structure / Unknown Non-blood Collection / Unknown 10/24/2024 2:58 PM EDT 10/24/2024 3:10 PM EDT us Valerie Harris MD LAB MICROBIOLOGY - GENERAL O RDERABLES Final Result Performing Organization Address City/[facility]/ZIP Co de Phone Number [facility] [address] [place] [address], [place] [phone] * (ABNORMAL) Wet prep, genital (10/24/2024 2:58 PM EDT) Clue Cells, Wet Prep Positive(A) Negative 10/24/2024 3:32 PM EDT [facility] Yeast, Wet Prep Negative Negative 10/24/2024 3:32 PM EDT [facility] Trichomonas, Wet Prep Indeterminate Negative 10/24/2024 3:32 PM EDT [facility] Comment:Refer to Trichomonas antigen. Swab Cervix uteri structure / Unknown Non-blood Collection / Unknown 10/24/2024 2:58 PM EDT 10/24/2024 3:09 PM EDT Valerie Harris MD LAB MICROBIOLOGY - GENERAL O RDERABLES Final Result [facility] [address] [place] [address], [place] [phone] * ECG 12 lead (10/24/2024 2:51 PM EDT) Ventricular Rate ECG 70 BPM GEMUSE Atrial Rate 70 BPM GEMUSE P-R Interval 134 ms GEMUSE QRS Duration 82 ms GEMUSE Q-T Interval 384 ms GEMUSE QTc 414 ms GEMUSE P Wave Hi Hat 47 degrees GEMUSE R Hi Hat 8 degrees GEMUSE T Hi Hat 28 degrees GEMUSE ECG Interpretation Normal sinus rhythm Normal ECG When compared with ECG of 04-AUG-2021 12:29, No significant change was found Confirmed by MD Dillan, Fercho ([id number]) on 10/24/2024 10:40:04 PM GEMUSE 10/24/2024 2:51 PM EDT 10/24/2024 10:40 PM EDT Valerie Harris MD ECG ORDERABLES Final Result GEMUSE * XR Chest 2 Views (10/23/2024 5:08 AM EDT) Anatomical Region Laterality Modality Body Radiographic Kenisha ging 10/23/2024 8:58 AM EDT Impressions 10/23/2024 8:58 AM EDT FINDINGS/IMPRESSION: Normal heart size and pulmonary vascularity. Lungs are clear and costophrenic angles are sharp. No acute osseous abnormality. -------- FINAL REPORT -------- Dictated By: Vincent Ortiz Dictated Date: 10/23/2024 08:58 ET Assigned Physician: Vincent Ortiz Reviewed and Electronically Signed By: Vincent Ortiz Signed Date: 10/23/2024 08:58 ET Workstation ID: [id number] Transcribed By: Self Edit Transcribed Date: 10/23/2024 08:58 ET Narrative 10/23/2024 8:58 AM EDT XR CHEST 2 VIEWS INDICATION: dyspnea URI symptoms TECHNIQUE: XR CHEST 2 VIEWS COMPARISON: No priors available. Procedure Note Vincent Ortiz MD - 10/23/2024 XR CHEST 2 VIEWS INDICATION: dyspnea URI symptoms TECHNIQUE: XR CHEST 2 VIEWS COMPARISON: No priors available. IMPRESSION: FINDINGS/IMPRESSION: Normal heart size and pulmonary vascularity. Lungsare clear and costophrenic angles are sharp. No acute osseousabnormality. -------- FINAL REPORT -------- Dictated By: Vincent Ortiz Dictated Date: 10/23/2024 08:58 ET Assigned Physician: Vincent Ortiz Reviewed and Electronically Signed By: Vincent Ortiz Signed Date: 10/23/2024 08:58 ET Workstation ID: [id number] Transcribed By: Self Edit Transcribed Date: 10/23/2024 08:58 ET Mario Alberto Peterson MD IMG XR PROCEDURES Final Result * Respiratory virus panel molecular study (10/23/2024 4:11 AM EDT) Adenovirus Detection by PCR Not Detected Not Detected LAB MICROBIOLOGY METHOD 10/23/2024 5:54 AM EDT [facility] Influenza A PCR Not Detected Not Detected LAB MICROBIOLOGY METHOD 10/23/2024 5:54 AM EDT [facility] Influenza B PCR Not Detected Not Detected LAB MICROBIOLOGY METHOD 10/23/2024 5:54 AM EDT [facility] Coronavirus 229E Not Detected Not Detected LAB MICROBIOLOGY METHOD 10/23/2024 5:54 AM EDT [facility] Coronavirus HKU1 Not Detected Not Detected LAB MICROBIOLOGY METHOD 10/23/2024 5:54 AM EDT [facility] Coronavirus OC43 Not Detected Not Detected LAB MICROBIOLOGY METHOD 10/23/2024 5:54 AM EDT [facility] Coronavirus NL63 Not Detected Not Detected LAB MICROBIOLOGY METHOD 10/23/2024 5:54 AM EDT [facility] Parainfluenza Virus 1 Not Detected Not Detected LAB MICROBIOLOGY METHOD 10/23/2024 5:54 AM EDT [facility] Parainfluenza Virus 2 Not Detected Not Detected LAB MICROBIOLOGY METHOD 10/23/2024 5:54 AM EDT [facility] Parainfluenza Virus 3 Not Detected Not Detected LAB MICROBIOLOGY METHOD 10/23/2024 5:54 AM EDT [facility] Parainfluenza Virus 4 Not Detected Not Detected LAB MICROBIOLOGY METHOD 10/23/2024 5:54 AM EDT [facility] RSV PCR Not Detected Not Detected LAB MICROBIOLOGY METHOD 10/23/2024 5:54 AM EDT [facility] Human Metapneumovirus A and B Not Detected Not Detected LAB MICROBIOLOGY METHOD 10/23/2024 5:54 AM EDT [facility] Rhinovirus/Entero virus Not Detected Not Detected LAB MICROBIOLOGY METHOD 10/23/2024 5:54 AM EDT [facility] Bordetella pertussis Not Detected Not Detected LAB MICROBIOLOGY METHOD 10/23/2024 5:54 AM EDT [facility] Bordetella parapertussis Not Detected Not Detected LAB MICROBIOLOGY METHOD 10/23/2024 5:54 AM EDT [facility] Mycoplasma pneumo by PCR Not Detected Not Detected LAB MICROBIOLOGY METHOD 10/23/2024 5:54 AM EDT [facility] Chlamydia pneumoniae Not Detected Not Detected LAB MICROBIOLOGY METHOD 10/23/2024 5:54 AM EDT [facility] SARS COV-2 Not Detected Not Detected LAB MICROBIOLOGY METHOD 10/23/2024 5:54 AM EDT [facility] Swab Both anterior nares / Unknown Non-blood Collection / Unknown 10/23/2024 4:11 AM EDT 10/23/2024 4:57 AM EDT Narrative [facility] - 10/23/2024 5:54 AM EDT Testing was performed using the [employer] Respiratory Pathogen PCR Assay. All results must be correlated with the clinical findings. Results should not be used as the sole basis for diagnosis. False Negative results may occur from the presence of sequence variants in the region targeted by the assay or the presence of inhibitors. Results may be affected by concurrent antiviral/antimicrobial therapy or levels of organisms that are below the limit of detection. us Rufina Barron MD LAB MICROBIOLOGY - GENERAL ORD ERABLES Final Result [facility] [address] [place] [address], * HIV 1,2 antibody, p24 antigen with reflex to differentiation (08/30/2024 7:09 PM EDT) HIV Combo AB/AG Negative Negative LAB CHEMISTRY METHOD 08/30/2024 8:48 PM EDT [facility] Blood Venous blood specimen / Unknown Venipuncture / Unknown 08/30/2024 7:09 PM EDT 08/30/2024 7:25 PM EDT Narrative [facility] - 08/30/2024 8:48 PM EDT This assay is a 4th generation assay allowing for earlier detection of HIV infection by detecting the presence of the HIV-1 p24 antigen as well as the traditional antibodies to HIV type 1 (including group O) and type 2. Use of a 4th generation assay is the current CDC recommendation for HIV screening. us Tali FONTANEZ LAB BLOOD ORDERABLES Final Result Performing Organization Address City/[facility]/ZIP Co de Phone Number [facility] [address] [place] [address], [place] [phone] * Hepatitis panel, acute with reflex to confirmation (08/30/2024 7:09 PM EDT) Pathologist [facility] [place] Hepatitis B Surface Ag Negative Negative LAB CHEMISTRY METHOD 08/30/2024 8:49 PM EDT [facility] Hepatitis A Antibody IgM Negative Negative LAB CHEMISTRY METHOD 08/30/2024 8:49 PM EDT [facility] Hep B Core IgM Negative Negative LAB CHEMISTRY METHOD 08/30/2024 8:49 PM EDT [facility] Hepatitis C Antibody Negative Negative LAB CHEMISTRY METHOD 08/30/2024 8:49 PM EDT [facility] Blood Venous blood specimen / Unknown Venipuncture / Unknown 08/30/2024 7:09 PM EDT 08/30/2024 7:25 PM EDT us Tali FONTANEZ LAB BLOOD ORDERABLES Final Result Performing Organization Address [facility]/ZIP Co de Phone Number [facility] [address] [place] [address], [place] [phone] from Last 3 Months or Most Recently Relevant to Health Maintenance Insurance MEDICAID - [place] 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
--- OUTSIDE RECORDS SUMMARY | 2024-12-03 16:56 | XMS_ITS | Clinical Summary ---
Author Organization [facility] Address [address] [place] [address] Care Team Providers Care Audio Visual Director Name Role Phone Unavailable Primary Care Provider [...] Mass Index - - Plan of Treatment Upcoming Encounters Date Type Department Care Team (Late st Contact Info) Description 12/14/2024 10:40 AM EDT Office Visit [facility] [address] [place] [phone] Iris Lawrence [address], [place] [phone] 12/16/2024 3:00 PM EDT Office Visit [facility] [address] [place] [phone] Shena Norton, DDS [address] [place] [address] Health Maintenance Due Date Last Done Comments Anxiety Screening 1997 Dental Prophy 1997 HPV Screening 1997 Hepatitis C Screening 1997 Pap + HPV 1997 HIV Screening 2012 Relationship Safety Screening/Counseling 2012 Imm-Hepatitis B (1 of 3 - 19 + 3-dose series) 2016 Cervical Cancer Screening 2018 Pap Smear 2018 Dental Examination 01/04/2023 01/02/2022 Dental Perio Charting 01/04/2023 01/02/2022 Dental BW 02/15/2024 02/12/2023, 01/02/2022 Alcohol and Drug Screen 03/03/2024 Depression Annual Screen 03/03/2024 [id number] ( season) 2024 022, 02/26/2021 Imm-Influenza (#1) 2024 12/26/2022, 0 05/15/2018, 01/31/2017, Additional history exists Tobacco Screening 05/31/2025 05/31/2024 Hypertension Screening (#1) 05/31/2027 Dental FMX/Pano 07/06/2027 07/03/2022, 01/02/2022 Imm-DTaP/Tdap/Td (9 - Td or Tdap) 12/26/2032 12/26/2022, 09/18/2018, 02/28/2017, Additional history exists Imm-HPV Completed 10/06/2008, 03/03, 01/13/2008 Cervical Ablation/Cold-Knife Conization Discontinued Cervical Cryotherapy Discontinued [...] Most Recently Relevant to Health Maintenance Insurance [place]
--- OUTSIDE RECORDS SUMMARY | 2024-12-03 16:56 | XMS_ITS | Clinical Summary ---
Author Organization [facility] Address [address] [place] [address] Care Team Providers Care Emergency Medical Technician Basic Name Role Phone Pcp, No Primary Care Provider Unavailabl e Allergies No known active allergies Medications No known medications Encounters Date Type Department Care Team Description 10/24/2024 1:32 AM EDT - 10/24/2024 4:09 AM EDT Emergency Day [facility] Emergency Department [address] [place] [phone] Toe pain, left (Primary Dx); Cellulitis Discharge Disposition: Home or Self Care from Last 3 Months Social History Tobacco Use Types Packs/Day Years Used Date Smoking Tobacco: Never Assessed Comments Unknown Sex and Gender Information Value Date Recorded Sex Assigned at Female 10/24/2024 1:38 AM EDT Legal Sex Female 1:26 AM EDT Gender Identity Female 10/24/2024 1:38 AM EDT Sexual Orientation Choose not to disclose 2024 1:38 AM EDT Last Filed Vital Signs Vital Sign Reading Time Taken Comments Blood Pressure 140/80 10/24/2024 1:29 AM EDT Pulse 88 10/24/2024 1:29 AM EDT Temperature 35.9 C (96.7 F) 10/24/2024 1:29 AM EDT Respiratory Rate 17 10/24/2024 1:29 AM EDT Oxygen Saturation 98% 10/24/2024 1:29 AM EDT Inhaled Oxygen Concentration - - Weight - - Height - - Body Mass Index - - Plan of Treatment Health Maintenance Due Date Last Done Comments Hepatitis C Virus Screening 1997 HIV Screening 2010 DTaP/Tdap/Td Vaccines (1 - Tdap) 2016 Hepatitis B Vaccines (1 of 3 - 19+ 3-dose series) 2016 Pap Smear (Ages 21-65) 2018 Influenza Vaccine 10/01/2024 COVID-19 Vaccine (2023-2 5 season) 2024 HPV Vaccines (No Doses Required) Completed Pneumococcal Vaccine: Pediat hiro (0-5 Years) and At-Risk Patients (6 to 49 Years) Aged Out No longer eligible b ased on patient's age to complete this topic Insurance [facility] Care Teams Emergency Medical Technician Basic Relationship Specialty Start Date End Date Pcp, No PCP - General 10/24/24
[2024-12-03 17:10] LABS: MANUAL DIFF FLAG NO
[2024-12-03 17:12] LABS: Hematocrit 39.7 % (37.0-47.0); Hemoglobin 13.4 g/dl (12.0-16.0); Imm Gran Abs Auto 0.02 X10*3/uL (0.00-0.03); Imm Gran Pct Auto 0.3 % (0.0-0.4); Lymphocytes Absolute Auto 2.4 X10*3/uL (1.2-4.9); Mean Corpuscular HGB Conc 33.8 g/dl (31.0-35.0); Mean Corpuscular Hemoglobin 28.5 pg (27.0-33.0); Mean Corpuscular Volume 84.5 fL (80.0-98.0); NRBC Abs Auto 0.000 X10*3/uL (0.0-0.012); NRBC Pct Auto 0.0 /100WBC (0.0-0.2); Platelet Count 321 X10*3/uL (160-400); Red Blood Count 4.70 X10*6/uL (4.20-5.50); White Blood Count 7.7 X10*3/uL (4.8-10.8)
[2024-12-03 17:26] LABS: Alanine Aminotransferase 23 U/L (0-31); Albumin Level 4.5 g/dL (3.5-5.0); Alkaline Phosphatase 75 U/L (39-117); Anion Gap 10 (12-20); Aspartate Amino Transferase 21 U/L (5-31); Blood Urea Nitrogen 10 mg/dL (9-16); Calcium 9.1 mg/dL (8.4-10.2); Carbon Dioxide 25 mmol/L (22-29); Chloride 108 mmol/L (96-108); Creatinine Clr Calc Pharmacy 96.2; Estimated Glomerular Filt Rate > 60; Potassium 3.8 mmol/L (3.3-5.1); Sodium 139 mmol/L (135-145); Total Protein 7.0 g/dL (6.5-8.0)
[2024-12-03 17:34] LABS: Troponin-I High Sensitivity < 2.7 ng/L (<3.5-17.0)
[2024-12-03 18:57] LABS: Appearance Urine Clear; Glucose Urine UA Negative (Negative); PH 5.5 (5.0-9.0); Specific Gravity - Urine 1.010 (1.005-1.025)
[2024-12-03 19:07] LABS: Cannabinoid Screen Urine Not Detected (Not Detect)
[2024-12-03 19:13] VITALS: BP 110/61; PULSE 76; RESP 16; TEMP 36.1; O2SAT 98
== END 2024-12-03 19:13 | disposition home or self-care (01) ==
PROVIDERS: Physician Assistant Medical; Emergency Provider Emergency Medicine
DX: R20.0 Anesthesia of skin (principal); I49.8 Other specified cardiac arrhythmias; Z51.81 Encounter for therapeutic drug level monitoring; Z79.899 Other long term (current) drug therapy
CPT/HCPCS: 36415; 80053; 80307; 81003; 84484; 84702; 85025; 93005; 99284

== ENCOUNTER → 2024-12-03 16:23 | Outpatient (BNV) | payer MEDICAID, SELFPAY | PROVIDERS: Emergency Provider Emergency Medicine; Visit Provider Internal Medicine | DX: R53.1 Weakness (principal) | CPT/HCPCS: 93010 ==